=== PATIENT | female | born 1995 ===

== ENCOUNTER → 2021-11-16 11:45 | Outpatient (CLI) | payer OTHER, SELFPAY ==
[2021-11-16 14:17] LABS: Urine N gonorrhoeae NOT DETECTED
[2021-11-16 14:18] LABS: Urine Chlamydia NOT DETECTED
== END ==
PROVIDERS: Visit Provider Specialist
DX: Z34.01 Encounter for supervision of normal first pregnancy, first trimester (principal); Z3A.12 12 weeks gestation of pregnancy
CPT/HCPCS: 87491; 87591

== ENCOUNTER → 2021-11-16 12:22 | Outpatient (CLI) | payer OTHER, SELFPAY ==
[2021-11-16 13:36] LABS: Add Manual Diff / Slide Review NO; Basophils Absolute Auto 100 /uL (0-100); Basophils Percent Auto 0.5 % (0-2); Eosinophils Absolute Auto 100 /uL (0-450); Eosinophils Percent Auto 1.3 % (2-4); Hematocrit 39.3 % (36-46); Lymphocytes Absolute Auto 1700 /uL (1100-4500); Lymphocytes Percent Auto 14.9 % (25-40); Mean Corpuscular HGB Conc 33.2 % (30-36); Mean Corpuscular Hemoglobin 28.9 PG (26-34); Monocytes Absolute Auto 800 /uL (0-900); Monocytes Percent Auto 7.1 % (3-14); Neutrophils Absolute Auto 8900 /uL (1500-7000); Neutrophils Percent Auto 76.2 % (50-75); Platelet Count 233 X10^3/uL (150-400); Red Blood Cell Count 4.51 X10^6/uL (4.0-5.2); White Blood Cell Count 11.6 X10^3/uL (4.5-11.0)
[2021-11-16 13:45] LABS: Appearance Urine UA CLEAR; Bilirubin Urine UA NEGATIVE (NEGATIVE); Color Urine UA YELLOW; Glucose Urine UA NEGATIVE (Negative); Ketones Urine UA NEGATIVE (NEGATIVE); Leukocyte Esterase Urine UA TRACE (NEGATIVE); Nitrite Urine UA NEGATIVE (Negative); Occult Blood Urine UA TRACE-LYSED (Negative); Protein Urine UA NEGATIVE (Negative); Specific Gravity Urine UA <=1.005 (1.000-1.035); Urobilinogen Urine UA 0.2 E.U./dL (0.2)
[2021-11-16 13:46] LABS: pH Urine UA 6.5 (4.5-8.0)
[2021-11-16 13:58] LABS: Bacteria Urine Few (2-10); RBC Urine 0-1/HPF (0-5/HPF); WBC Urine 5-10/HPF (0-5/HPF)
[2021-11-16 17:28] LABS: HIV 1 & 2 Ab/Ag 4th Gen Combo NEGATIVE (NEGATIVE); Hep C Virus Ab w/Reflex Quant NEGATIVE s/c (NEGATIVE); Hepatitis B Surface Antigen NEGATIVE s/c (NEGATIVE); Rubella Antibody IgG 23.9 IU/mL (>15)
[2021-11-17 08:15] LABS: RPR Screen Non Reactive (Non Reactive)
[2021-11-17 12:12] LABS: Varicella IgG Antibody <135 index (Immune >165)
== END ==
PROVIDERS: PCP Student in an Organized Health Care Education/Training Program; Referring Provider Specialist; Visit Provider Specialist
DX: Z34.01 Encounter for supervision of normal first pregnancy, first trimester (principal); Z3A.12 12 weeks gestation of pregnancy
CPT/HCPCS: 36415; 80055; 81003; 81015; 86787; 86803; 86850; 86900; 86901; 87086; 87389; 87491; 87591

== ENCOUNTER → 2021-12-14 12:23 | Outpatient (CLI) | payer OTHER, SELFPAY ==
[2021-12-16 19:15] LABS: Estriol, Free 0.98 ng/mL (.); Inhibin A, Dimeric 252.75 pg/mL (.); Inhibin A, MoM 1.63 (.); Maternal Ethnicity Other (.); Maternal Weight 152 lbs (.); Number of Fetuses No (.); OSBR Risk 1 IN 523 (.); Results Report (.); Test Results *Screen Negative* (.); hCG, MoM 1.23 (.); hCG, Serum 51171 mIU/mL (.)
== END ==
PROVIDERS: PCP Student in an Organized Health Care Education/Training Program; Referring Provider Specialist; Visit Provider Specialist
DX: Z34.02 Encounter for supervision of normal first pregnancy, second trimester (principal); Z3A.16 16 weeks gestation of pregnancy
CPT/HCPCS: 36415; 82105; 82677; 84702; 86336

== ENCOUNTER → 2022-01-13 12:08 | Outpatient (CLI) | payer OTHER, SELFPAY ==
--- NOTE | 2022-01-13 12:11 | DI.US.S_ITS ---
PROCEDURE: US OB >= 14 WEEKS FETUS INDICATIONS: 20 week anatomy OUTSIDE/PRIOR DATING DATA: Last menstrual period (LMP): 08/24/2021. LMP-based estimated date of delivery (EMERALD): 05/31/2022. First dating scan (date and location): 11/16/2021. Estimated date of delivery (EMERALD) from first dating scan: 05/26/2022. TECHNIQUE: Real-time scanning was performed of the fetus, with image documentation and biometric measurements. COMPARISON: [facility], US, OB >= 14 WEEKS FETUS, 01/04/2022, 11:17. FINDINGS: General: A single living intrauterine gestation is present. Presentation: Variable. Placenta: Placental position is posterior right, without previa. Amniotic fluid index: 11 cm, normal range is 5-24 cm. Single deepest vertical pocket is 3.9 cm. heart rate: 158 beats per minute. Maternal cervical canal: 4.5 cm long. Normal lower limit is 2.5 cm. biometrics: Biparietal diameter: 4.8 cm, 20 weeks 4 days Head circumference: 17.6 cm, 20 weeks 1 day Abdominal circumference: 16.3 cm, 21 weeks 3 days Femur length: 3.4 cm, 20 weeks 4 days Estimated gestational age based on 1st trimester ultrasound: 21 weeks 0 days Composite gestational age from present scan: 20 weeks 5 days Estimated weight and percentile: 385 g, 39th percentile Anatomic survey: Neuro: Ventricles are non-dilated at less than 10 mm. Cisterna magna is normal at 3-11 mm. Cerebellum is normal in size and morphology. Nuchal skin fold: Normal at less than 6 mm between 14-21 weeks gestational age. Face: Nose and lips, facial profile are normal. Spine: No evidence for spina bifida. Heart: Suboptimally visualized. Diaphragm: Diaphragm is intact. Stomach: Left-sided stomach is present. Kidneys: No hydronephrosis. Normal is less than 5 mm in 2nd trimester, less than 7 mm in 3rd trimester. Cord: Placental cord insertion not well seen. Bladder: Normal in size. Extremities: All 4 extremities identified. IMPRESSION: 1. Koenig living intrauterine at 20 weeks 5 days based on today's ultrasound. This is concordant with the prior ultrasound. There is expected interval growth. Fetus is in the 39th percentile for weight. 2. Normal placenta and amniotic fluid. 3. heart and placental cord insertion are not well seen. Otherwise normal anatomic survey. Recommend follow-up OB ultrasound. We strive to produce accurate, complete, and clear reports of imaging services. To assist us in improving patient care, this report was composed using standard report templates and voice recognition software. Therefore, it may contain abnormal punctuation, insertions and/or omissions. Occasional wrong-word or sound-alike substitutions may occur. Though we review the report and make efforts to correct it, we do recommend that the report be read carefully in proper context to recognize any text inaccuracies. Dictated by: Esvin Gruber M.D. on 01/13/2022 at 15:43 Approved by: Esvin Gruber M.D. on 01/13/2022 at 15:47
== END ==
PROVIDERS: PCP Student in an Organized Health Care Education/Training Program; Referring Provider Specialist; Visit Provider Specialist
DX: Z34.02 Encounter for supervision of normal first pregnancy, second trimester (principal); Z3A.20 20 weeks gestation of pregnancy
CPT/HCPCS: 76811

== ENCOUNTER 2022-02-07 21:43 | Outpatient (CLI) | payer OTHER, SELFPAY | END 2022-02-07 23:29 | disposition home or self-care (01) | LOC: OB 02-09 06:54 | PROVIDERS: PCP Student in an Organized Health Care Education/Training Program; Referring Provider Obstetrics & Gynecology; Visit Provider Obstetrics & Gynecology | DX: O46.92 Antepartum hemorrhage, unspecified, second trimester (principal); Z3A.23 23 weeks gestation of pregnancy | CPT/HCPCS: 59050; G0378; G0379 ==

== ENCOUNTER 2024-03-07 11:57 | Day surgery (SDC) | payer OTHER, SELFPAY ==
[2024-02-29 14:41] VITALS: BMI 27.8
[2024-03-07 12:33] VITALS: BP 121/68; PULSE 80; RESP 19; TEMP 37.1; O2SAT 100; BMI 27.4
[2024-03-07] MEDS: LACTATED RINGERS 1,000 ML 42 ML IV ×2 (12:57→14:45)
--- NOTE | 2024-03-07 13:05 | SUR.PREOP ---
Block start time 1300 for right adductor and popliteal blocks. Monitoring initiated and maintained throughout procedure. Oxygen and medications given per anesthesiologist instructions. Patient remained stable throughout procedure, no adverse reactions noted. Block end time [1335].
--- NOTE | 2024-03-07 13:10 | PM.PREOP ---
Pre-operative Note Interval Note History & Physical reviewed/Exam performed by Physician: Yes Changes to H&P: No
[2024-03-07] MEDS: CEFAZOLIN 2 GM/100 ML PREMIX 100 ML IV (13:40)
--- NOTE | 2024-03-07 14:02 | SUR.OPER ---
Supine on padded OR bed, head on pillow, arms secured on padded arm boards at <90 degrees abduction, legs uncrossed, safety belt at thigh, tape over blanket over lower legs.
[2024-03-07] MEDS: BUPIVACAINE 0.25% (PF) 30 ML, EPINEPHrine 0.15 MG INJ (14:13)
[2024-03-07 15:42] VITALS: BP 120/62; PULSE 84; RESP 12; TEMP 36.2; O2SAT 100
[2024-03-07 15:47] VITALS: BP 130/68; PULSE 73; RESP 22; TEMP 36.2; O2SAT 99
[2024-03-07 15:52] VITALS: BP 113/63; PULSE 73; RESP 13; TEMP 36.2; O2SAT 99
[2024-03-07] MEDS: OXYCODONE IR 5 MG TABLET PO (15:55)
[2024-03-07] MEDS: ONDANSETRON 4 MG/2 ML INJ IV (15:55)
[2024-03-07 15:58] VITALS: PULSE 73; RESP 18; TEMP 36.2; O2SAT 99
[2024-03-07] MEDS: hydrOXYzine 50 MG/ML INJ 25 MG IM (16:06)
[2024-03-07 16:08] VITALS: BP 109/57; PULSE 74; RESP 20; O2SAT 99
--- NOTE | 2024-03-07 16:09 | P.OP_ITS ---
Operative Date/Time/Diagnoses Date of procedure: 03/07/24 Time of procedure: 16:10 Pre-op diagnosis: Right hallux valgus Post-op diagnosis: same Procedure & Clinicians Procedure: Correction hallux valgus by double osteotomy CPT code 23370, right Same procedure as scheduled: Yes Indications: Patient is a 28-year-old female with a painful hallux valgus deformity. She is failed extensive conservative treatment. She is elected for surgical correction with osteotomies. The risks and benefits of the procedure have been discussed with the patient and given the opportunity to ask questions. The risks of surgery include but are not limited to infection, malunion, nonunion, persistence of pain, damage to nerves and blood vessels, posttraumatic arthritis, DVT, PE, coardiopulmonary complications and . The patient expressed a thorough understanding of the risks and benefits of surgery and has elected to proceed. Consent was signed. Surgeon: iN Austin Click Yes if Unassisted: Yes Anesthesia Type: General, Peripheral nerve block and Local Operative Notes Findings: Hallux valgus deformity. Stable 1st ray., right Closure Type: primary Specimen(s): none sent Prosthetic devices, grafts, tissues, transplants, or devices: Brooks 4.0mm postop screws x2 beveled Brooks screw for Quentin osteotomy x1, 26 mm beveled Estimated Blood Loss (mL): 5 Blood products transfused: none Tourniquet time (min): 0 Procedure in detail: Patient was seen in the preoperative area the site of surgery marked informed consent confirmed. This was the right lower extremity. A regional block was placed by the anesthesia team for postoperative pain control. The patient was then brought back to the operating room positioned supine on operative table. She was brought to the end of the bed heels were off the bed. Padded thigh tourniquet was placed but not inflated. C-arm was positioned on the operative side of the table and the minimally invasive bur on the contralateral side. Formal time-out procedure was performed confirming the patient's side and site of surgery administration of appropriate preoperative antibiotic all were in agreement. And the right lower extremity was prepped and draped in standard sterile fashion. No tourniquet was utilized. Attention turned to the foot the C-arm was brought in and the axis of the 1st metatarsal was marked out then the small incision was made at the level of the metatarsal head just proximal to the sesamoids. Elevation was taken periosteum subperiosteally. The bur was inserted across the cortex bicortically and then hand was manipulated dorsally and plantarly to complete the transverse osteotomy. The osteotomy was free and the head was shifted and the guide inserted. The metatarsal head was de rotated and pinned at the distal guide then the proximal guide was secured this was checked in the AP and lateral planes to confirm appropriate alignment for the trajectories and then the guide trocar and wire were lined up a small incision was made and the guide for the medial guide system was utilized and the guidewire for the 4.0 screw placed. Once this was positioned it was overdrilled and then the 4.0 screw placed. Due to skiving the jig was then removed and the 2nd wire was drilled freehand and a 2nd 4.0 beveled screw was placed this had excellent fixation in the AP and lateral planes with no displacement or elevation of the 1st ray. Once this was completed there was some residual hallux valgus interphalangeus. Therefore decision was made for the Quentin osteotomy small incision was made on the medial metaphyseal flare and again the minimally invasive bur with irrigation was utilized to create the closing osteotomy this was closed down pinned across with a wire overdrilled and a headless beveled cannulated screw placed to fix the Quentin osteotomy. Final x- rays were taken in the AP oblique and lateral planes confirmed appropriate hardware alignment and correction of the hallux valgus. Then attention was turned to the remaining metatarsal shaft flare medially the bur was used to smooth this down carefully under fluoroscopic guidance there were no sharp edges remaining. Once this was completed there was thorough irrigation and the wounds were closed with nylon suture. A sterile bunion Myerson style dressing was applied as well as a posterior splint. The patient was woken from anesthesia taken to recovery room in good condition there were no immediate complications from procedure. All counts were correct. Complications: none Post-operative Condition: stable Disposition: PACU Plan for aftercare: Nonweightbearing x2 weeks and will come into clinic and be moved from the splint to a boot and initiate heel to flatfoot partial weight-bearing and progressive fashion. Aspirin for DVT prophylaxis.
== END 2024-03-07 18:09 | disposition home or self-care (01) ==
PROVIDERS: Referring Provider Orthopaedic Surgery Foot and Ankle Surgery; Visit Provider Orthopaedic Surgery Foot and Ankle Surgery
PROC: 0QBN0ZZ Excision of Right Metatarsal, Open Approach (ICD-10-PCS; CPT 28292; principal; 2024-03-07 13:45)
DX: M20.11 Hallux valgus (acquired), right foot (principal); G89.18 Other acute postprocedural pain
CPT/HCPCS: 28299; 64450; J0171; J0690; J1170; J2250; J2405; J2704; J3010; J3410

== ENCOUNTER → 2024-06-14 15:07 | Outpatient (CLI) | payer OTHER, SELFPAY ==
--- NOTE | 2024-06-14 | DI.MG.S_ITS ---
BILATERAL DIGITAL DIAGNOSTIC MAMMOGRAM 3D/2D SHORT-TERM FOLLOW-UP: 06/14/2024 CLINICAL: Patient returns for a 6 month follow up of the left breast, due for bilateral exam. Baselline Mammogram. Comparison is made to exam dated: 12/16/2023 ultrasound - [facility]. 04/26/2023 ultrasound - [facility]. The breasts are extremely dense, which lowers the sensitivity of mammography (category d />75% glandular tissue). There is a 1.2 cm oval asymmetry in the left breast posterior depth superior region seen on the mediolateral oblique view only. This likely correlates with ultrasound findings. There also is a 0.9 cm oval mass in the left breast at 3 o'clock anterior depth. This likely correlates with ultrasound findings. No other significant masses, calcifications, or other findings are seen in either breast. IMPRESSION: INCOMPLETE: NEED ADDITIONAL IMAGING EVALUATION The 1.2 cm oval asymmetry in the left breast posterior depth superior region resembles a fibroadenoma and is indeterminate. The 0.9 cm oval mass in the left breast at 3 o'clock anterior depth resembles a fibroadenoma and is indeterminate. A targeted ultrasound is recommended and will immediately follow. Based on the Tyrer Cuzick model (a risk assessment model) the patient's lifetime risk is 13.2% and her 10 year risk is 0.5%. According to the ACR, ACS, and NCCN guidelines, an annual breast MRI exam along with mammogram is recommended if the patient's lifetime risk is 20% or greater. This exam was interpreted at Station ID: [id number]. NOTE: For mammograms, a report in lay terms will be sent to the patient. Approximately 15% of breast malignancies will not be visualized mammographically. In the management of a palpable breast mass, a negative mammogram must not discourage biopsy of a clinically suspicious lesion. Electronically Signed By: Esvin Gruber M.D. [facility]/:06/14/2024 16:09:31 letter sent: Additional Imaging Needed ACR BI-RADS Category 0: Incomplete: Need Additional Imaging Evaluation
--- NOTE | 2024-06-14 15:08 | DI.US.S_ITS ---
LIMITED ULTRASOUND OF LEFT BREAST AND AXILLA: 06/14/2024 CLINICAL: 6 month follow up left breast. Comparison is made to exams dated: 06/14/2024 mammogram - [facility] and 12/16/2023 ultrasound - [facility]. Color flow and real-time ultrasound of the left breast 3 o'clock, 8 o'clock, 10 o'clock, and axilla regions were performed. Frausto scale images of the real-time examination were reviewed. There is a stable 1.1 cm x 0.9 cm x 0.8 cm oval mass with a circumscribed margin in the left breast at 3 o'clock anterior depth 3 cm from the nipple. There also is a 1.3 cm x 1.2 cm x 0.6 cm oval mass with a circumscribed margin in the left breast at 10 o'clock middle depth 7 cm from the nipple. This abnormality is slightly increased in size. Additionally, there is a 0.8 cm x 0.8 cm x 0.4 cm oval mass with a circumscribed margin in the left breast at 8 o'clock middle depth 7 cm from the nipple. This abnormality is slightly increased in size. No significant abnormalities were seen sonographically in the left axilla. 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 -A follow-up ultrasound in 12 months is recommended to demonstrate long-term stability. The stable 1.1 cm circumscribed mass in the left breast at 3 o'clock anterior depth is probably benign. The 1.3 cm circumscribed mass in the left breast at 10 o'clock middle depth is probably benign. The 0.8 cm circumscribed mass in the left breast at 8 o'clock middle depth is probably benign. Exam findings were conveyed to the patient. Patient is advised to monitor for significant change. This exam was interpreted at Station ID: [id number]. Electronically Signed By: Esvin Gruber M.D. [facility] [place]/:06/14/2024 16:55:56 letter sent: Followup Recommended ACR BI-RADS Category 3: Probably Benign
== END ==
PROVIDERS: Referring Provider Preventive Medicine Aerospace Medicine; Visit Provider Preventive Medicine Aerospace Medicine
DX: R92.8 Other abnormal and inconclusive findings on diagnostic imaging of breast (principal); N63.25 Unspecified lump in the left breast, overlapping quadrants; N63.22 Unspecified lump in the left breast, upper inner quadrant; N63.24 Unspecified lump in the left breast, lower inner quadrant; R92.343 Mammographic extreme density, bilateral breasts
CPT/HCPCS: 76642; 77066; G0279